=== PATIENT | female | born 1960 | race Caucasian/White ===

== ENCOUNTER 2018-10-05 17:45 | Emergency (ER) | payer OTHER | END 2018-10-05 18:15 | disposition left against medical advice (07) | DRG 951 | LOC: ED 17:45 | DX: Z53.8 Procedure and treatment not carried out for other reasons (principal) ==

== ENCOUNTER 2019-04-17 14:35 | Outpatient (CLI) | payer OTHER | END 2019-04-17 14:36 | disposition home or self-care (01) | LOC: CONVCARE 14:36 ==